=== PATIENT | male | born 1970 | race Caucasian/White ===

== ENCOUNTER 2018-11-15 00:11 | Inpatient (IN) | payer OTHER ==
[~2018-11-15] VITALS: Ht 165.1 cm; Wt 99.2 kg
--- NOTE | 2018-11-15 00:13 | NUR ---
PG CODE NEURO @ 0000
[2018-11-15 00:44] LABS: BASOPHILS # (AUTO) 0.03 x10^3/uL (0-0.1); BASOPHILS % (AUTO) 0 % (0-1); EOSINOPHILS # (AUTO) 0.09 x10^3/uL (0-0.4); EOSINOPHILS % (AUTO) 1 % (1-7); LYMPHOCYTES # (AUTO) 1.96 x10^3/uL (1-3.4); LYMPHOCYTES % (AUTO) 23 % (22-44); MD NO; MEAN CORPUSCULAR HEMOGLOBIN 29.2 pg (27.5-34.5); MEAN CORPUSCULAR HGB CONC 33.4 g/dL (33.2-36.2); MEAN CORPUSCULAR VOLUME 87.3 fL (81-97); MEAN PLATELET VOLUME 7.7 fL (7.4-10.4); MONOCYTES # (AUTO) 0.75 x10^3/uL (0.2-0.8); MONOCYTES % (AUTO) 9 % (2-9); NEUTROPHILS # (AUTO) 5.67 x10^3/uL (1.8-6.8); NEUTROPHILS % (AUTO) 67 % (42-75); PLATELET COUNT 232 x10^3/uL (130-400); RED BLOOD COUNT 4.97 x10^6/uL (4.38-5.82); RED CELL DISTRIBUTION WIDTH 13.4 % (9.4-14.8)
--- NOTE | 2018-11-15 00:45 | NUR ---
ERP in to reassess pt. ERP aware of pt bp. Orders placed and med requested from pharm.
[2018-11-15 00:51] LABS: INTERNATIONAL NORMALIZED RATIO 1.03 (0.93-1.1); PROTHROMBIN TIME 10.8 Seconds (9.6-11.5)
--- NOTE | 2018-11-15 01:01 | NUR ---
Lunch Rn; Nicardipine drip started. Verified with md Mixon goal for reducing bp. Pt still a/ox4. Pt has voided 4x for as total of 800cc urine. I will continue to monitor pt [place].
--- NOTE | 2018-11-15 01:27 | NUR ---
Report received from von RN. Nicardipine drip infusing. No acute changes noted from initial neuro assessment.
--- NOTE | 2018-11-15 01:31 | NUR ---
Dr Khalil at bedside to alex.
--- NOTE | 2018-11-15 02:05 | NUR ---
Drip decreased s/t rapid drop in bp. Pt remains A&Ox4. Mild weakness to R extremities. No needs expressed at this time.
[2018-11-15] MEDS ORDERED: ONDANSETRON 4 MG TABLET PO PRN (02:30)
[2018-11-15] MEDS ORDERED: INSTRUCTION SEE COMMENTS XX ONE (02:30)
[2018-11-15] MEDS ORDERED: LABETALOL 5MG/ML, 20ML IV PRN (02:30)
[2018-11-15 03:13] LABS: AMPHETAMINE SCREEN, URINE Negative (Negative); BARBITURATE SCREEN, URINE Negative (Negative); BENZODIAZEPINE SCREEN, URINE Negative (Negative); CANNABINOID SCREEN, URINE Negative (Negative); COCAINE SCREEN, URINE Negative (Negative); METHADONE SCREEN, URINE Negative (Negative); OPIATE SCREEN, URINE Negative (Negative)
[2018-11-15 03:38] VITALS: BP 185/93
[2018-11-15 04:59] LABS: INTERNATIONAL NORMALIZED RATIO 1.02 (0.93-1.1); PROTHROMBIN TIME 10.7 Seconds (9.6-11.5)
[2018-11-15 05:03] LABS: BASOPHILS # (AUTO) 0.03 x10^3/uL (0-0.1); BASOPHILS % (AUTO) 0 % (0-1); EOSINOPHILS # (AUTO) 0.05 x10^3/uL (0-0.4); EOSINOPHILS % (AUTO) 1 % (1-7); LYMPHOCYTES # (AUTO) 1.49 x10^3/uL (1-3.4); LYMPHOCYTES % (AUTO) 18 % (22-44); MD NO; MEAN CORPUSCULAR HEMOGLOBIN 29.1 pg (27.5-34.5); MEAN CORPUSCULAR VOLUME 87.9 fL (81-97); MEAN PLATELET VOLUME 7.9 fL (7.4-10.4); MONOCYTES # (AUTO) 0.51 x10^3/uL (0.2-0.8); MONOCYTES % (AUTO) 6 % (2-9); NEUTROPHILS # (AUTO) 6.07 x10^3/uL (1.8-6.8); NEUTROPHILS % (AUTO) 75 % (42-75); PLATELET COUNT 230 x10^3/uL (130-400); RED BLOOD COUNT 5.42 x10^6/uL (4.38-5.82); RED CELL DISTRIBUTION WIDTH 13.6 % (9.4-14.8)
[2018-11-15 05:04] LABS: HCT (SEDRATE) 47.4 % (39.2-51.8)
[2018-11-15] MEDS ORDERED: ACETAMINOPHEN 100 ML IVPB ONE (05:30)
[2018-11-15] MEDS ORDERED: ACETAMINOPHEN 325 MG TABLET PO PRN (05:30)
[2018-11-15 05:45] LABS: HEMOGLOBIN A1C 5.2 % (4.2-6.3)
[2018-11-15] MEDS ORDERED: OMNIPAQUE 350 MG/ML, 100ML BOTTLE ONE (05:45)
--- NOTE | 2018-11-15 09:57 | NUR ---
REC: Reg/thins Addendum: 11/15/18 at 0958 by Jennifer GAN Amended: Links added.
[2018-11-15 15:30] LABS: AMPHETAMINE SCREEN, URINE Negative (Negative); BARBITURATE SCREEN, URINE Negative (Negative); BENZODIAZEPINE SCREEN, URINE Negative (Negative); CANNABINOID SCREEN, URINE Negative (Negative); COCAINE SCREEN, URINE Negative (Negative); METHADONE SCREEN, URINE Negative (Negative); OPIATE SCREEN, URINE Negative (Negative)
[2018-11-15] MEDS ORDERED: LABETALOL 5MG/ML, 20ML IVPush PRN (17:00)
[2018-11-15] MEDS ORDERED: POTASSIUM CHLORIDE 20 MEQ TAB.ER.PRT PO ONE (17:00)
[2018-11-15] MEDS: ATORVASTATIN 40 MG TABLET PO SCH (21:38)
[2018-11-15] MEDS: LISINOPRIL 10 MG TABLET PO SCH (21:38)
[2018-11-16 04:43] LABS: BASOPHILS # (AUTO) 0.02 x10^3/uL (0-0.1); BASOPHILS % (AUTO) 0 % (0-1); EOSINOPHILS % (AUTO) 1 % (1-7); LYMPHOCYTES # (AUTO) 1.94 x10^3/uL (1-3.4); LYMPHOCYTES % (AUTO) 20 % (22-44); MD NO; MEAN CORPUSCULAR HEMOGLOBIN 28.6 pg (27.5-34.5); MEAN CORPUSCULAR HGB CONC 32.8 g/dL (33.2-36.2); MEAN CORPUSCULAR VOLUME 87.1 fL (81-97); MEAN PLATELET VOLUME 7.5 fL (7.4-10.4); MONOCYTES # (AUTO) 0.87 x10^3/uL (0.2-0.8); MONOCYTES % (AUTO) 9 % (2-9); NEUTROPHILS % (AUTO) 71 % (42-75); PLATELET COUNT 258 x10^3/uL (130-400); RED BLOOD COUNT 5.62 x10^6/uL (4.38-5.82); RED CELL DISTRIBUTION WIDTH 13.5 % (9.4-14.8)
[2018-11-16 04:48] LABS: ANION GAP 7 mmol/L (5-15); CHLORIDE 105 mmol/L (98-107)
[2018-11-16 04:55] LABS: ALANINE AMINOTRANSFERASE 24 U/L (12-78); ALKALINE PHOSPHATASE 82 U/L (45-117); BILIRUBIN,TOTAL 1.9 mg/dL (0.2-1.0); CALCIUM 9.1 mg/dL (8.5-10.1); CHOL/HDL RATIO 4.3; CHOLESTEROL, TOTAL 203 mg/dL (140-239); CREATININE 1.01 mg/dL (0.7-1.3); HDL CHOL % 23 % (26-37); HDL CHOLESTEROL (DIRECT) 47 mg/dL (40-60); LDL CHOLESTEROL,CALCULATED 128 mg/dL (54-169); LDL/HDL RATIO 2.7 (0.5-3.0); TOTAL PROTEIN 9.2 g/dL (6.4-8.2); TRIGLYCERIDES 142 mg/dL (50-200); VLDL CHOLESTEROL 28 mg/dL (0-25)
[2018-11-16] MEDS: LISINOPRIL 10 MG TABLET PO SCH ×2 (09:19→20:59)
[2018-11-16] MEDS: FOLIC ACID 1 MG TABLET PO SCH (09:19)
[2018-11-16] MEDS: THIAMINE 100MG TABLET PO SCH (09:20)
[2018-11-16] MEDS: MULTIVITAMIN 1 TABLET PO SCH (09:20)
[2018-11-16 16:49] VITALS: BP 156/97
[2018-11-16 19:51] VITALS: BP 179/99
[2018-11-16] MEDS: ATORVASTATIN 40 MG TABLET PO SCH (20:59)
[2018-11-16] MEDS: LABETALOL 5 MG/ML SYRINGE IVPush PRN (21:05)
[2018-11-16] MEDS ORDERED: LABETALOL 5 MG/ML SYRINGE IV PRN (21:30)
[2018-11-16 21:50] VITALS: BP 158/94
[2018-11-16 23:53] VITALS: BP 143/83
[2018-11-17 02:02] VITALS: BP 154/92
[2018-11-17 07:49] VITALS: BP 156/105
[2018-11-17] MEDS: MULTIVITAMIN 1 TABLET PO SCH (08:33)
[2018-11-17] MEDS: THIAMINE 100MG TABLET PO SCH (08:33)
[2018-11-17] MEDS: LISINOPRIL 10 MG TABLET PO SCH ×2 (08:33→20:28)
[2018-11-17] MEDS: AMLODIPINE 5 MG TABLET PO SCH (08:33)
[2018-11-17] MEDS: FOLIC ACID 1 MG TABLET PO SCH (08:33)
[2018-11-17 08:45] LABS: ANION GAP 8 mmol/L (5-15); CALCIUM 8.8 mg/dL (8.5-10.1); CHLORIDE 106 mmol/L (98-107); CREATININE 1.07 mg/dL (0.7-1.3)
[2018-11-17 13:09] VITALS: BP 169/103
[2018-11-17] MEDS ORDERED: THIA100T67 PO (15:56)
[2018-11-17] MEDS ORDERED: MULT1TAB60 PO (15:56)
[2018-11-17] MEDS ORDERED: AMLO-150 PO (15:56)
[2018-11-17] MEDS ORDERED: FOLI-17 PO (15:56)
[2018-11-17] MEDS ORDERED: LISI-167 PO ×2 (15:56)
[2018-11-17] MEDS ORDERED: ATOR40TA78 PO (15:56)
[2018-11-17] MEDS: LABETALOL 5 MG/ML SYRINGE IVPush PRN (16:47)
[2018-11-17] MEDS ORDERED: hydrALAzine 20 MG/ML, 1ML IV PRN (17:00)
[2018-11-17 17:54] VITALS: BP 152/97
[2018-11-17 18:49] VITALS: BP 156/91
[2018-11-17] MEDS: ATORVASTATIN 40 MG TABLET PO SCH (20:28)
[2018-11-18 00:14] VITALS: BP 153/98
[2018-11-18 03:42] LABS: BASOPHILS # (AUTO) 0.02 x10^3/uL (0-0.1); BASOPHILS % (AUTO) 0 % (0-1); EOSINOPHILS # (AUTO) 0.13 x10^3/uL (0-0.4); EOSINOPHILS % (AUTO) 1 % (1-7); LYMPHOCYTES # (AUTO) 2.53 x10^3/uL (1-3.4); LYMPHOCYTES % (AUTO) 26 % (22-44); MD NO; MEAN CORPUSCULAR HEMOGLOBIN 28.8 pg (27.5-34.5); MEAN CORPUSCULAR HGB CONC 32.7 g/dL (33.2-36.2); MEAN CORPUSCULAR VOLUME 87.9 fL (81-97); MEAN PLATELET VOLUME 7.5 fL (7.4-10.4); MONOCYTES # (AUTO) 0.81 x10^3/uL (0.2-0.8); MONOCYTES % (AUTO) 9 % (2-9); NEUTROPHILS # (AUTO) 6.07 x10^3/uL (1.8-6.8); NEUTROPHILS % (AUTO) 64 % (42-75); PLATELET COUNT 240 x10^3/uL (130-400); RED BLOOD COUNT 5.14 x10^6/uL (4.38-5.82); RED CELL DISTRIBUTION WIDTH 13.8 % (9.4-14.8)
[2018-11-18 07:49] VITALS: BP 164/99
[2018-11-18] MEDS: FOLIC ACID 1 MG TABLET PO SCH (07:59)
[2018-11-18] MEDS: MULTIVITAMIN 1 TABLET PO SCH (07:59)
[2018-11-18] MEDS: AMLODIPINE 5 MG TABLET PO SCH (07:59)
[2018-11-18] MEDS: THIAMINE 100MG TABLET PO SCH (07:59)
[2018-11-18] MEDS: LISINOPRIL 10 MG TABLET PO SCH (07:59)
[2018-11-18] MEDS ORDERED: LISINOPRIL 10 MG TABLET ONE (08:56)
[2018-11-18] MEDS ORDERED: LISINOPRIL 20 MG TABLET PO SCH (09:00)
[2018-11-18] MEDS ORDERED: LISI-170 PO (09:13)
[2018-11-18 10:16] VITALS: BP 143/89
== END 2018-11-18 10:51 | disposition home or self-care (01) | DRG 304 ==
LOC: EDSEX 00:11 → EDBD 00:11 → ED 01:23 → EDIP 01:43 → CCU 03:09 → 4WST 11-16 16:16 → DCLOUNGE 11-18 10:41
PROVIDERS: ADMIT Internal Medicine; ATTEND Internal Medicine
DX: I16.1 Hypertensive emergency (principal); I61.3 Nontraumatic intracerebral hemorrhage in brain stem; G81.91 Hemiplegia, unspecified affecting right dominant side; E66.01 Morbid (severe) obesity due to excess calories; E87.6 Hypokalemia; M10.9 Gout, unspecified; R29.810 Facial weakness; Y90.2 Blood alcohol level of 40-59 mg/100 ml; R47.1 Dysarthria and anarthria; R29.705 NIHSS score 5; F10.120 Alcohol abuse with intoxication, uncomplicated; G47.33 Obstructive sleep apnea (adult) (pediatric); H53.2 Diplopia; I10 Essential (primary) hypertension; Z68.36 Body mass index [BMI] 36.0-36.9, adult; Z82.49 Family history of ischemic heart disease and other diseases of the circulatory system; Z83.3 Family history of diabetes mellitus; Z86.73 Personal history of transient ischemic attack (TIA), and cerebral infarction without residual deficits; Z82.61 Family history of arthritis
CPT/HCPCS: 36415; 70450; 70496; 70498; 70551; 80047; 80048; 80053; 80061; 80307; 83036; 83735; 84100; 85025; 85610; 85651; 85730; 86140; 87081; 93005; 99285; G0378; J7060; Q9967; 92523-GN; J7050